=== PATIENT | female | born 1940 | race Caucasian/White ===

== ENCOUNTER 2016-11-20 21:48 | Inpatient (IN) | payer MEDICARE, OTHER ==
[~2016-11-20] VITALS: Ht 160 cm; Wt 63.6 kg
[~2016-11-20 21:48] MED LIST: LEVO500 PO; LISI20TA PO; METF1000 PO; PERCT PO
[2016-11-20] MEDS ORDERED: LOSA25TA21 PO (21:56)
[2016-11-20 22:01] LABS: GLUCOSE,POINT OF CARE 289 MG/DL (70-110)
[2016-11-20 23:47] LABS: BASOPHILS # (AUTO) 0.06 K/uL (0.00-0.20); BASOPHILS % (AUTO) 0.4 % (0.0-2.0); EOSINOPHILS # (AUTO) 0.03 K/uL (0.00-0.70); EOSINOPHILS % (AUTO) 0.21 % (1.0-6.0); HEMATOCRIT 33.4 % (36-46); HEMOGLOBIN 11.1 g/dL (12.0-16.0); LYMPHOCYTES # (AUTO) 2.5 K/uL (1.0-4.8); MEAN CORPUSCULAR HEMOGLOBIN 28.1 pg (26.0-34.0); MEAN CORPUSCULAR HGB CONC 33.3 G/dL (31.0-37.0); MEAN CORPUSCULAR VOLUME 84 fL (80-100); MONOCYTES # (AUTO) 0.9 K/uL (0.1-1.0); MONOCYTES % (AUTO) 5.9 % (2.0-9.0); NEUTROPHILS # (AUTO) 12.3 K/uL (1.8-7.7); NEUTROPHILS % (AUTO) 77.5 % (40.0-70.0); PLATELET COUNT (AUTO) 269 K/uL (150-450); RED BLOOD CELL COUNT(AUTO) 3.96 MIL/uL (4.00-5.20); RED CELL DISTRIBUTION WIDTH 14.2 % (11.5-14.5); WHITE BLOOD COUNT (AUTO) 15.9 K/uL (4.5-11.0)
[2016-11-21] VITALS (7 sets, daily range): BP systolic 98–119; BP diastolic 49–60
[2016-11-21] LABS: ANION GAP 9 mmol/L (8-16); CALCIUM, TOTAL 8.5 mg/dL (8.8-10.5); CARBON DIOXIDE 23 mmol/L (22-29); CHLORIDE 99 mmol/L (98-107); CREATININE 3.65 mg/dL (0.60-1.30); GLOMERULAR FILTR. RATE CALC 12 mL/min (>60); POTASSIUM 5.9 mmol/L (3.5-5.1); SODIUM SERUM 131 mmol/L (136-145); UREA NITROGEN, BLOOD 54 mg/dL (7-18)
[2016-11-21 00:06] LABS: ALANINE AMINOTRANSFERASE 13 U/L (12-78); ALBUMIN 2.9 g/dL (3.4-5.0); ASPARTATE AMINOTRANSFERASE 13 U/L (15-37); BILIRUBIN,TOTAL 0.3 mg/dL (0.1-1.0); CREATINE KINASE, TOTAL 22 U/L (26-192); TOTAL PROTEIN, SERUM 7.3 g/dL (6.4-8.2)
[2016-11-21] MEDS ORDERED: SODIUM CHLORIDE 0.9% 1,000 ML IV ONE (00:30)
[2016-11-21] MEDS ORDERED: CefTRIAXone 1 GM/DEXTROSE 50 ML IV ONE (00:30)
[2016-11-21 00:34] LABS: ADD UA MICROSCOPIC YES; APPEARANCE,URINE CLOUDY (CLEAR); GLUCOSE, URINE (UA) 100 mg/dL (NEGATIVE); KETONES,URINE NEGATIVE (NEGATIVE); LEUKOCYTE ESTERASE ,URINE MODERATE (NEGATIVE); OCCULT BLOOD,URINE MODERATE (NEGATIVE); PROTEIN,URINE POS 1+ (NEGATIVE)
[2016-11-21 00:51] LABS: SQUAMOUS EPITHELIAL CELL,UR Few /LPF (None Seen)
[2016-11-21] MEDS ORDERED: OxyCODONE HCL/ACETAMINOPHEN 5-325 MG TABLET PO PRN ×2 (01:15)
[2016-11-21] MEDS ORDERED: 0.9% SODIUM CHLORIDE 10 ML SYRINGE IVP PRN ×2 (01:15)
[2016-11-21] MEDS ORDERED: ACETAMINOPHEN 325 MG TABLET PO PRN ×2 (01:15)
[2016-11-21] MEDS ORDERED: DEXTROSE 50%-WATER 25 GM/50 ML SYRINGE IVP ONE (01:15)
[2016-11-21] MEDS ORDERED: SODIUM POLYSTYRENE SULFONATE 15 GM/60 ML SUSPENSION BOTTLE PO ONE (01:15)
[2016-11-21] MEDS ORDERED: INSULIN REGULAR, HUMAN 100 UNITS/ML IVP ONE (01:15)
[2016-11-21] MEDS ORDERED: ALBUTEROL SULFATE 2.5 MG/0.5 ML NEB SOLUTION NEB ONE (01:15)
[2016-11-21] MEDS ORDERED: ONDANSETRON HCL 4 MG/2 ML VIAL IVP PRN ×2 (01:15)
[2016-11-21] MEDS: DOCUSATE SODIUM 100 MG CAPSULE PO SCH ×3 (02:16→21:41)
[2016-11-21] MEDS ORDERED: PNEUMOCOCCAL VACCINE POLYVALENT 0.5 ML VIAL [PPSV23] IM ONE (03:30)
[2016-11-21] MEDS: SODIUM CHLORIDE 0.9% 1,000 ML IV SCH ×3 (03:53→21:15)
[2016-11-21] MEDS: PANTOPRAZOLE SODIUM 40 MG/VIAL IVP SCH (09:47)
[2016-11-21] MEDS ORDERED: DEXTROSE 50%-WATER 25 GM/50 ML SYRINGE IVP PRN (11:00)
[2016-11-21] MEDS: INSULIN ASPART 100 UNITS/ML SQ PRN (12:10)
[2016-11-21 13:04] LABS: CALCIUM, TOTAL 7.9 mg/dL (8.8-10.5); CREATININE 2.58 mg/dL (0.60-1.30); POTASSIUM 4.5 mmol/L (3.5-5.1)
[2016-11-21 13:08] LABS: MAGNESIUM 1.5 mg/dL (1.80-2.40); PHOSPHORUS 2.5 mg/dL (2.5-4.9)
[2016-11-21] MEDS ORDERED: MAGNESIUM SULFATE 1 GM in DEXTROSE 5%-WATER 50 ML IV ONE (14:45)
[2016-11-21] MEDS: OXYGEN THERAPY IH SCH (20:00)
[2016-11-22] MEDS: CefTRIAXone 1 GM/DEXTROSE 50 ML IV SCH (01:06)
[2016-11-22 04:58] VITALS: BP 117/48
[2016-11-22] MEDS: SODIUM CHLORIDE 0.9% 1,000 ML IV SCH (06:14)
[2016-11-22] MEDS: INSULIN ASPART 100 UNITS/ML SQ PRN ×4 (06:15→20:58)
[2016-11-22 06:40] LABS: BASOPHILS % (AUTO) 0.3 % (0.0-2.0); EOSINOPHILS % (AUTO) 1.6 % (1.0-6.0); HEMATOCRIT 32.7 % (36-46); HEMOGLOBIN 11.1 g/dL (12.0-16.0); LYMPHOCYTES # (AUTO) 2.5 K/uL (1.0-4.8); LYMPHOCYTES % (AUTO) 28.6 % (22.0-44.0); MEAN CORPUSCULAR HEMOGLOBIN 28.6 pg (26.0-34.0); MEAN CORPUSCULAR HGB CONC 33.9 G/dL (31.0-37.0); MEAN CORPUSCULAR VOLUME 84 fL (80-100); MONOCYTES # (AUTO) 0.7 K/uL (0.1-1.0); MONOCYTES % (AUTO) 7.6 % (2.0-9.0); NEUTROPHILS # (AUTO) 5.4 K/uL (1.8-7.7); NEUTROPHILS % (AUTO) 61.9 % (40.0-70.0); PLATELET COUNT (AUTO) 297 K/uL (150-450); RED BLOOD CELL COUNT(AUTO) 3.88 MIL/uL (4.00-5.20); RED CELL DISTRIBUTION WIDTH 14.6 % (11.5-14.5); WHITE BLOOD COUNT (AUTO) 8.7 K/uL (4.5-11.0)
[2016-11-22 07:00] LABS: CALCIUM, TOTAL 8.5 mg/dL (8.8-10.5); CREATININE 1.78 mg/dL (0.60-1.30); MAGNESIUM 1.9 mg/dL (1.80-2.40); PHOSPHORUS 3.4 mg/dL (2.5-4.9); POTASSIUM 3.8 mmol/L (3.5-5.1)
[2016-11-22 07:52] VITALS: BP 133/65
[2016-11-22] MEDS: OXYGEN THERAPY IH SCH ×2 (08:31→20:00)
[2016-11-22] MEDS: PANTOPRAZOLE SODIUM 40 MG/VIAL IVP SCH (08:32)
[2016-11-22] MEDS: DOCUSATE SODIUM 100 MG CAPSULE PO SCH ×2 (08:32→20:55)
[2016-11-22 12:12] VITALS: BP 123/58
[2016-11-22] MEDS ORDERED: OMEP20 PO (14:14)
[2016-11-22] MEDS ORDERED: LINA5TAB PO (14:14)
[2016-11-22] MEDS ORDERED: ALEN70TA48 PO (14:14)
[2016-11-22] MEDS ORDERED: GABA-531 PO (14:14)
[2016-11-22] MEDS ORDERED: HYDR25TA PO (14:14)
[2016-11-22] MEDS ORDERED: GLIP10 PO (14:14)
[2016-11-22 15:37] LABS: GLUCOSE,POINT OF CARE 177 MG/DL (70-110)
[2016-11-22 15:37] LABS: GLUCOSE,POINT OF CARE 131 MG/DL (70-110)
[2016-11-22 15:47] LABS: GLUCOSE COMMENT 1 Received Meds; GLUCOSE,POINT OF CARE 185 MG/DL (70-110)
[2016-11-22 15:58] VITALS: BP 115/61
[2016-11-22 19:47] LABS: GLUCOSE COMMENT 1 Received Meds; GLUCOSE,POINT OF CARE 147 MG/DL (70-110)
[2016-11-22 19:59] VITALS: BP 128/59
[2016-11-22 20:32] LABS: GLUCOSE COMMENT 1 Received Meds; GLUCOSE,POINT OF CARE 173 MG/DL (70-110)
[2016-11-23 00:01] VITALS: BP 130/63
[2016-11-23] MEDS: CefTRIAXone 1 GM/DEXTROSE 50 ML IV SCH (01:52)
[2016-11-23 04:12] VITALS: BP 133/67
[2016-11-23] MEDS: INSULIN ASPART 100 UNITS/ML SQ PRN ×2 (06:43→12:21)
[2016-11-23 06:50] LABS: CALCIUM, TOTAL 8.4 mg/dL (8.8-10.5); CREATININE 1.29 mg/dL (0.60-1.30); MAGNESIUM 1.6 mg/dL (1.80-2.40); PHOSPHORUS 3.2 mg/dL (2.5-4.9); POTASSIUM 3.6 mmol/L (3.5-5.1)
[2016-11-23] MEDS: OXYGEN THERAPY IH SCH (08:00)
[2016-11-23 08:13] VITALS: BP 131/69
[2016-11-23] MEDS: DOCUSATE SODIUM 100 MG CAPSULE PO SCH (08:33)
[2016-11-23] MEDS: PANTOPRAZOLE SODIUM 40 MG/VIAL IVP SCH (08:34)
[2016-11-23] MEDS ORDERED: MAGNESIUM SULFATE 2 GM in DEXTROSE 5%-WATER 50 ML IV ONE (08:45)
[2016-11-23 10:57] VITALS: BP 126/63
[2016-11-24 06:03] LABS: GLUCOSE COMMENT 1 Received Meds; GLUCOSE,POINT OF CARE 203 MG/DL (70-110)
[2016-11-24 06:08] LABS: GLUCOSE COMMENT 1 Received Meds; GLUCOSE,POINT OF CARE 227 MG/DL (70-110)
[2016-11-24 07:58] LABS: GLUCOSE,POINT OF CARE 192 MG/DL (70-110)
[2016-11-24 07:58] LABS: GLUCOSE COMMENT 1 Received Meds; GLUCOSE,POINT OF CARE 166 MG/DL (70-110)
== END 2016-11-23 13:25 | disposition home or self-care (01) | DRG 682 ==
LOC: EMS 21:50 → 5N 11-21 01:16
PROVIDERS: ADMIT Internal Medicine; ATTEND Internal Medicine
PROC: 3E0234Z Introduction of Serum, Toxoid and Vaccine into Muscle, Percutaneous Approach (ICD-10-PCS; principal; 2016-11-21)
DX: N17.9 Acute kidney failure, unspecified (principal); E43 Unspecified severe protein-calorie malnutrition; E11.9 Type 2 diabetes mellitus without complications; N39.0 Urinary tract infection, site not specified; E87.5 Hyperkalemia; E86.0 Dehydration; I10 Essential (primary) hypertension; B96.20 Unspecified Escherichia coli [E. coli] as the cause of diseases classified elsewhere; E83.42 Hypomagnesemia; Z23 Encounter for immunization; E78.00 Pure hypercholesterolemia, unspecified; M19.90 Unspecified osteoarthritis, unspecified site; M53.3 Sacrococcygeal disorders, not elsewhere classified; Z96.649 Presence of unspecified artificial hip joint; R29.6 Repeated falls; M54.5 Low back pain; Z90.710 Acquired absence of both cervix and uterus; Z79.899 Other long term (current) drug therapy; Z68.24 Body mass index [BMI] 24.0-24.9, adult; T50.905A Adverse effect of unspecified drugs, medicaments and biological substances, initial encounter
CPT/HCPCS: 72220; 76770; 82962; 83735; 84100; 87040; 87086; 90471; 93005; 96365; 96375; 99291; C9113; J0696; J1815; J3475; J7030; J7060

== ENCOUNTER 2016-12-30 19:10 | Emergency (ER) | payer MEDICARE, OTHER ==
[~2016-12-30] VITALS: Ht 152.4 cm; Wt 67.7 kg
[~2016-12-30 19:10] MED LIST changes: +ALEN70TA48 PO; +ALEN70TA69 PO; +GLIP10TA9 PO; +HYDR12.530 PO; +HYDR25TA PO; -LEVO500 PO; +LINA5TAB PO; -LISI20TA PO; +LOSA50TA37 PO; +METF10002 PO; +OMEP20 PO; +OMEP20CA10 PO; -PERCT PO; +SIMV20TA6 PO; +[UNRECOGNIZED DRUG - REMARK] PO
[2016-12-30] MEDS ORDERED: IBUP-2070 PO (19:16)
[2016-12-30 20:24] LABS: BASOPHILS % (AUTO) 0.2 % (0.0-2.0); EOSINOPHILS % (AUTO) 1.1 % (1.0-6.0); HEMATOCRIT 35.3 % (36-46); HEMOGLOBIN 11.7 g/dL (12.0-16.0); LYMPHOCYTES # (AUTO) 2.2 K/uL (1.0-4.8); MEAN CORPUSCULAR HEMOGLOBIN 27.5 pg (26.0-34.0); MEAN CORPUSCULAR HGB CONC 33.2 G/dL (31.0-37.0); MEAN CORPUSCULAR VOLUME 83 fL (80-100); MONOCYTES # (AUTO) 0.6 K/uL (0.1-1.0); MONOCYTES % (AUTO) 4.7 % (2.0-9.0); NEUTROPHILS # (AUTO) 9.9 K/uL (1.8-7.7); PLATELET COUNT (AUTO) 365 K/uL (150-450); RED BLOOD CELL COUNT(AUTO) 4.26 MIL/uL (4.00-5.20); RED CELL DISTRIBUTION WIDTH 14.7 % (11.5-14.5)
[2016-12-30 20:33] LABS: CALCIUM, TOTAL 9.1 mg/dL (8.8-10.5); CREATININE 1.02 mg/dL (0.60-1.30)
[2016-12-30 20:39] LABS: ALBUMIN 3.3 g/dL (3.4-5.0); BILIRUBIN,TOTAL 0.4 mg/dL (0.1-1.0); TOTAL PROTEIN, SERUM 7.7 g/dL (6.4-8.2)
[2016-12-30 21:00] LABS: APPEARANCE,URINE CLEAR (CLEAR); BILIRUBIN,URINE NEGATIVE (NEGATIVE); GLUCOSE, URINE (UA) 100 mg/dL (NEGATIVE); KETONES,URINE NEGATIVE (NEGATIVE); LEUKOCYTE ESTERASE ,URINE NEGATIVE (NEGATIVE); NITRATE,URINE NEGATIVE (NEGATIVE); OCCULT BLOOD,URINE NEGATIVE (NEGATIVE); PROTEIN,URINE NEGATIVE (NEGATIVE); UROBILINOGEN,URINE 0.2 mg/dL (<=1.0)
[2016-12-30 21:14] VITALS: BP 125/74
[2016-12-30 21:14] LABS: SQUAMOUS EPITHELIAL CELL,UR Few /LPF (None Seen)
[2016-12-30 21:15] LABS: BACTERIA,URINE Moderate /HPF (None Seen)
[2016-12-30 21:16] LABS: RBC,URINE None Seen /HPF (0-2)
[2016-12-30] MEDS ORDERED: CYCLOBENZAPRINE HCL 10 MG TABLET PO ONE (21:30)
[2016-12-31 11:22] LABS: GLUCOSE,POINT OF CARE 312 MG/DL (70-110)
== END 2016-12-30 21:50 | disposition home or self-care (01) ==
LOC: EDUNIT# 19:14 → EMS 19:16
DX: M43.6 Torticollis (principal)
CPT/HCPCS: 82948; 82962; 87086; 93005; 99285

== ENCOUNTER 2017-12-20 12:46 | Emergency (ER) | payer MEDICARE, OTHER ==
[~2017-12-20] VITALS: Ht 152.4 cm; Wt 62.3 kg
[~2017-12-20 12:46] MED LIST changes: +IBUP-2070 PO; +LOSA50TA25 PO; -LOSA50TA37 PO; +METF-446 PO; -METF10002 PO
[2017-12-20 12:59] LABS: GLUCOSE,POINT OF CARE 316 MG/DL (70-110)
[2017-12-20] MEDS ORDERED: ACETAMINOPHEN 325 MG TABLET PO ONE (14:00)
[2017-12-20 15:07] VITALS: BP 141/79
== END 2017-12-20 15:11 | disposition home or self-care (01) ==
LOC: EMS 12:47
DX: S82.832A Other fracture of upper and lower end of left fibula, initial encounter for closed fracture (principal); E11.65 Type 2 diabetes mellitus with hyperglycemia; I10 Essential (primary) hypertension; G89.29 Other chronic pain; Z79.84 Long term (current) use of oral hypoglycemic drugs; W22.01XA Walked into wall, initial encounter; Y93.89 Activity, other specified; Y92.89 Other specified places as the place of occurrence of the external cause; Y99.8 Other external cause status
CPT/HCPCS: 29515

== ENCOUNTER → 2018-01-13 | Outpatient (CLI) | payer MEDICARE, OTHER ==
[~2018-01-13] MED LIST changes: -[UNRECOGNIZED DRUG - REMARK] PO
[2018-01-13 11:59] LABS: APPEARANCE,URINE CLOUDY (CLEAR); GLUCOSE, URINE (UA) NEGATIVE (NEGATIVE); KETONES,URINE TRACE mg/dL (NEGATIVE); LEUKOCYTE ESTERASE ,URINE MODERATE (NEGATIVE); NITRATE,URINE POSITIVE (NEGATIVE); OCCULT BLOOD,URINE TRACE (NEGATIVE); PROTEIN,URINE TRACE (NEGATIVE)
[2018-01-13 12:03] LABS: BILIRUBIN,URINE PRELIM. POSITIVE (NEGATIVE)
[2018-01-13 12:04] LABS: BACTERIA,URINE Many /HPF (None Seen); RBC,URINE 0-2 /HPF (0-2); SQUAMOUS EPITHELIAL CELL,UR Moderate /LPF (None Seen)
[2018-01-13 12:08] LABS: ALBUMIN 3.8 g/dL (3.4-5.0); ANION GAP 9 mmol/L (8-16); CALCIUM, TOTAL 9.2 mg/dL (8.8-10.5); CARBON DIOXIDE 29 mmol/L (22-29); CHLORIDE 101 mmol/L (98-107); CHOL/HDL RATIO 2.3 (3.9-5.7); CHOLESTEROL 82 mg/dL (131-200); CREATININE 0.89 mg/dL (0.60-1.30); GLUCOSE,RANDOM 126 mg/dL (70-110); HDL CHOLESTEROL 35 mg/dL (40-60); LDL CHOL (CALC.) 28 mg/dL (0-130); PHOSPHORUS 3.5 mg/dL (2.5-4.9); POTASSIUM 4.6 mmol/L (3.5-5.1); SODIUM SERUM 139 mmol/L (136-145); TRIGLYCERIDES 96 mg/dL (15-150); UREA NITROGEN, BLOOD 15 mg/dL (7-18)
[2018-01-13 12:09] LABS: GLOMERULAR FILTR. RATE CALC > 60 mL/min (>60)
[2018-01-13 12:12] LABS: BASOPHILS % (AUTO) 0.7 % (0.0-2.0); EOSINOPHILS % (AUTO) 1.7 % (1.0-6.0); HEMATOCRIT 42.2 % (36-46); HEMOGLOBIN 14.2 g/dL (12.0-16.0); LYMPHOCYTES # (AUTO) 2.5 K/uL (1.0-4.8); LYMPHOCYTES % (AUTO) 31.9 % (22.0-44.0); MEAN CORPUSCULAR HEMOGLOBIN 28.5 pg (26.0-34.0); MEAN CORPUSCULAR HGB CONC 33.7 G/dL (31.0-37.0); MEAN CORPUSCULAR VOLUME 85 fL (80-100); MONOCYTES # (AUTO) 0.5 K/uL (0.1-1.0); NEUTROPHILS # (AUTO) 4.6 K/uL (1.8-7.7); NEUTROPHILS % (AUTO) 59.7 % (40.0-70.0); PLATELET COUNT (AUTO) 332 K/uL (150-450); RED CELL DISTRIBUTION WIDTH 14.6 % (11.5-14.5)
[2018-01-13 12:41] LABS: HEMOGLOBIN A1C 7.5 % (4.5-6.2)
== END | disposition home or self-care (01) ==
LOC: LABPV 10:51
PROVIDERS: ATTEND Internal Medicine Nephrology
DX: E55.9 Vitamin D deficiency, unspecified (principal); E78.5 Hyperlipidemia, unspecified; E11.9 Type 2 diabetes mellitus without complications; Z79.899 Other long term (current) drug therapy
CPT/HCPCS: 82043; 82306; 82570; 83036; 83735; 83970; 87086

== ENCOUNTER → 2018-01-25 | Outpatient (CLI) | payer MEDICARE, OTHER | END | disposition home or self-care (01) | LOC: RADPV 09:13 | PROVIDERS: ATTEND Orthopaedic Surgery | DX: S82.842A Displaced bimalleolar fracture of left lower leg, initial encounter for closed fracture (principal); X58.XXXA Exposure to other specified factors, initial encounter; Y93.89 Activity, other specified; Y92.89 Other specified places as the place of occurrence of the external cause; Y99.8 Other external cause status ==

== ENCOUNTER → 2018-02-15 | Outpatient (CLI) | payer MEDICARE, OTHER ==
[~2018-02-15] MED LIST changes: -LOSA50TA25 PO; +LOSA50TA64 PO
== END | disposition home or self-care (01) ==
LOC: RADPV 09:30
PROVIDERS: ATTEND Orthopaedic Surgery
DX: S82.62XD Displaced fracture of lateral malleolus of left fibula, subsequent encounter for closed fracture with routine healing (principal); S82.842D Displaced bimalleolar fracture of left lower leg, subsequent encounter for closed fracture with routine healing; X58.XXXD Exposure to other specified factors, subsequent encounter

== ENCOUNTER → 2018-05-03 | Outpatient (CLI) | payer MEDICARE, OTHER ==
[~2018-05-03] MED LIST changes: +ALEN70TA10 PO; +ALEN70TA19 PO; -ALEN70TA48 PO; -ALEN70TA69 PO
== END | disposition home or self-care (01) ==
LOC: RADPV 12:18
PROVIDERS: ATTEND Orthopaedic Surgery
DX: S82.832A Other fracture of upper and lower end of left fibula, initial encounter for closed fracture (principal); X58.XXXA Exposure to other specified factors, initial encounter; Y93.89 Activity, other specified; Y92.89 Other specified places as the place of occurrence of the external cause; Y99.8 Other external cause status

== ENCOUNTER → 2018-10-27 | Outpatient (CLI) | payer MEDICARE, OTHER ==
[~2018-10-27] MED LIST changes: +OMEP-50 PO; -OMEP20CA10 PO
[2018-10-27 12:33] LABS: BILIRUBIN,URINE NEGATIVE (NEGATIVE); GLUCOSE, URINE (UA) 250 mg/dL (NEGATIVE); KETONES,URINE NEGATIVE (NEGATIVE); LEUKOCYTE ESTERASE ,URINE SMALL (NEGATIVE); NITRATE,URINE POSITIVE (NEGATIVE); OCCULT BLOOD,URINE SMALL (NEGATIVE); PROTEIN,URINE NEGATIVE (NEGATIVE); UROBILINOGEN,URINE 0.2 mg/dL (<=1.0)
[2018-10-27 12:38] LABS: APPEARANCE,URINE SLIGHTLY CLOUDY (CLEAR)
[2018-10-27 12:45] LABS: BACTERIA,URINE Many /HPF (None Seen); SQUAMOUS EPITHELIAL CELL,UR Moderate /LPF (None Seen)
== END | disposition home or self-care (01) ==
LOC: LABPV 11:38
PROVIDERS: ATTEND Internal Medicine Nephrology
DX: I12.9 Hypertensive chronic kidney disease with stage 1 through stage 4 chronic kidney disease, or unspecified chronic kidney disease (principal); N18.9 Chronic kidney disease, unspecified; M54.5 Low back pain; R73.09 Other abnormal glucose; R82.998 Other abnormal findings in urine
CPT/HCPCS: 83036; 87086

== ENCOUNTER → 2019-11-28 | Outpatient (CLI) | payer MEDICARE ==
[~2019-11-28] MED LIST changes: -ALEN70TA10 PO; -ALEN70TA19 PO; +ALEN70TA65 PO; +GLIP10 PO; -GLIP10TA9 PO; +HYDR-1475 PO; -HYDR12.530 PO; -HYDR25TA PO; -IBUP-2070 PO; +LEVO-72 PO; +LOSA50TA37 PO; -LOSA50TA64 PO; -METF-446 PO; +METF-960 PO; -METF1000 PO; -OMEP-50 PO; +SIMV-260 PO; -SIMV20TA6 PO
== END | disposition home or self-care (01) ==
LOC: RADMN 09:37
PROVIDERS: ATTEND Family Medicine
DX: M51.16 Intervertebral disc disorders with radiculopathy, lumbar region (principal); M40.46 Postural lordosis, lumbar region; M43.16 Spondylolisthesis, lumbar region; M48.061 Spinal stenosis, lumbar region without neurogenic claudication
CPT/HCPCS: 72148

== ENCOUNTER 2020-04-12 14:00 | Emergency (ER) | payer MEDICARE, OTHER ==
[~2020-04-12] VITALS: Ht 149.9 cm; Wt 45.5 kg
[~2020-04-12 14:00] MED LIST changes: -HYDR-1475 PO; +HYDR25TA2 PO
[2020-04-12 14:03] VITALS: BP 127/64
[2020-04-12] MEDS ORDERED: HYDROCODONE/ACETAMINOPHEN 5-325 MG TABLET PO ONE (14:30)
[2020-04-12] MEDS ORDERED: CYCLOBENZAPRINE HCL 10 MG TABLET PO ONE (14:30)
[2020-04-12] MEDS ORDERED: IBUPROFEN 400 MG TABLET PO ONE (14:30)
== END 2020-04-12 15:56 | disposition home or self-care (01) ==
LOC: EMS 14:11
DX: M43.6 Torticollis (principal); E11.9 Type 2 diabetes mellitus without complications; I10 Essential (primary) hypertension
CPT/HCPCS: 99284

== ENCOUNTER 2020-11-30 10:40 | Inpatient (IN) | payer MEDICARE, OTHER ==
[~2020-11-30] VITALS: Ht 152.4 cm; Wt 59.4 kg
[~2020-11-30 10:40] MED LIST changes: -LEVO-72 PO
[2020-11-30] MEDS ORDERED: ACETAMINOPHEN 500 MG TABLET PO ONE (12:00)
[2020-11-30] MEDS ORDERED: ACETAMINOPHEN 325 MG TABLET PO PRN (14:30)
[2020-11-30] MEDS ORDERED: 0.9% SODIUM CHLORIDE 10 ML SYRINGE IVP PRN (14:30)
[2020-11-30] MEDS ORDERED: ONDANSETRON HCL 4 MG/2 ML VIAL IVP PRN ×2 (14:30→18:30)
[2020-11-30 14:38] LABS: COVID AG,FIA SOURCE NASOPHARYNGEAL
[2020-11-30 14:40] LABS: BASOPHILS % (AUTO) 0.1 % (0.0-2.0); EOSINOPHILS % (AUTO) 0 % (1.0-6.0); HEMATOCRIT 36.5 % (36-46); HEMOGLOBIN 11.5 g/dL (12.0-16.0); LYMPHOCYTES # (AUTO) 2.3 K/uL (1.0-4.8); MEAN CORPUSCULAR HEMOGLOBIN 24.8 pg (26.0-34.0); MEAN CORPUSCULAR HGB CONC 31.5 G/dL (31.0-37.0); MEAN CORPUSCULAR VOLUME 79 fL (80-100); MONOCYTES # (AUTO) 0.6 K/uL (0.1-1.0); MONOCYTES % (AUTO) 3.5 % (2.0-9.0); NEUTROPHILS # (AUTO) 13.8 K/uL (1.8-7.7); NEUTROPHILS % (AUTO) 82.4 % (40.0-70.0); PLATELET COUNT (AUTO) 355 K/uL (150-450); RED BLOOD CELL COUNT(AUTO) 4.63 MIL/uL (4.00-5.20); RED CELL DISTRIBUTION WIDTH 16.6 % (11.5-14.5)
[2020-11-30 14:42] LABS: ANION GAP 7 mmol/L (8-16); CALCIUM, TOTAL 8.6 mg/dL (8.8-10.5); CARBON DIOXIDE 28 mmol/L (22-29); CHLORIDE 100 mmol/L (98-107); CREATININE 0.75 mg/dL (0.60-1.30); GLUCOSE,RANDOM 348 mg/dL (70-110); POTASSIUM 4.6 mmol/L (3.5-5.1); SODIUM SERUM 135 mmol/L (136-145); UREA NITROGEN, BLOOD 26 mg/dL (7-18)
[2020-11-30 14:43] LABS: GLOMERULAR FILTR. RATE CALC > 60 mL/min (>60)
[2020-11-30 14:48] LABS: PROTHROMBIN TIME 10.5 SEC (9.4-11.6)
[2020-11-30 14:49] LABS: ALANINE AMINOTRANSFERASE 61 U/L (12-78); ALBUMIN 3.2 g/dL (3.4-5.0); ALKALINE PHOSPHATASE 86 U/L (46-116); ASPARTATE AMINOTRANSFERASE 21 U/L (15-37); BILIRUBIN,TOTAL 0.5 mg/dL (0.1-1.0); TOTAL PROTEIN, SERUM 6.7 g/dL (6.4-8.2)
[2020-11-30] MEDS ORDERED: MORPHINE SULFATE 2 MG/ML SYRINGE IVP PRN (18:30)
[2020-11-30] MEDS ORDERED: ALBUTEROL SULFATE 2.5 MG/0.5 ML NEB SOLUTION NEB PRN (18:30)
[2020-11-30] MEDS ORDERED: IPRATROPIUM BROMIDE 0.5 MG/2.5 ML NEB SOLUTION NEB PRN (18:30)
[2020-11-30] MEDS ORDERED: BISACODYL 10 MG RECTAL RECTAL SUPPOSITORY PR PRN (18:30)
[2020-11-30] MEDS ORDERED: MAGNESIUM HYDROXIDE SUSPENSION 30 ML UDCUP PO PRN (18:30)
[2020-11-30 20:15] VITALS: BP 131/57
[2020-11-30] MEDS: DOCUSATE SODIUM 100 MG CAPSULE PO SCH (20:41)
[2020-11-30] MEDS: ZOLPIDEM TARTRATE 5 MG TABLET PO PRN (20:41)
[2020-11-30] MEDS: HYDROCODONE/ACETAMINOPHEN 5-325 MG TABLET PO PRN (20:43)
[2020-11-30] MEDS ORDERED: SODIUM CHLORIDE 0.9% 1,000 ML ONE (21:02)
[2020-11-30] MEDS ORDERED: SODIUM CHLORIDE 0.9% 1,000 ML IV SCH (21:15)
[2020-11-30] MEDS: HEPARIN SODIUM,PORCINE 5,000 UNITS/ML VIAL SQ SCH (23:42)
[2020-11-30] MEDS ORDERED: INFLUENZA VIRUS VACCINE QVS 2021-22 (6MO+)/PF 60 MCG/0.5 ML SYRINGE IM. ONE (23:45)
[2020-12-01] MEDS: HYDROCODONE/ACETAMINOPHEN 5-325 MG TABLET PO PRN ×3 (01:56→23:59)
[2020-12-01 04:05] VITALS: BP 185/102
[2020-12-01] MEDS: LinaGLIPtin 5 MG TABLET PO SCH (04:19)
[2020-12-01] MEDS: GlipiZIDE 10 MG TABLET PO SCH (04:20)
[2020-12-01] MEDS ORDERED: LOSARTAN POTASSIUM 50 MG TABLET PO ONE (04:30)
[2020-12-01 05:30] VITALS: BP 153/70
[2020-12-01] MEDS ORDERED: BUPIVACAINE HCL/PF 0.25% 30 ML VIAL ONE (06:51)
[2020-12-01] MEDS ORDERED: RINGERS SOLUTION,LACTATED 0 ML IV ONE (06:51)
[2020-12-01] MEDS ORDERED: VANCOMYCIN HCL 1 GM/VIAL ONE (06:51)
[2020-12-01] MEDS ORDERED: SODIUM CL IRRIG SOLN BAG 0 ML IRRIG ONE (06:52)
[2020-12-01] MEDS ORDERED: SODIUM CHLORIDE 0.9% 1,000 ML ONE (06:55)
[2020-12-01] MEDS ORDERED: BUPIVACAINE 0.25%/EPI 1:200,000/PF 10 ML VIAL ONE (06:56)
[2020-12-01] MEDS ORDERED: BUPIVACAINE LIPOSOME/PF 1.3%-13.3MG/ML SUSPENSION 20 ML VIAL INJ ONE (07:00)
[2020-12-01 07:24] LABS: GLUCOMETER DEV NAME(LOC) 6N.1; GLUCOSE,POINT OF CARE 239 MG/DL (70-110)
[2020-12-01] MEDS: HEPARIN SODIUM,PORCINE 5,000 UNITS/ML VIAL SQ SCH ×3 (08:00→23:59)
[2020-12-01] MEDS ORDERED: FentaNYL CITRATE PF 100 MCG/2 ML VIAL IVP PRN (08:45)
[2020-12-01] MEDS ORDERED: HYDROmorphone 2 MG/ML VIAL IVP PRN (08:45)
[2020-12-01 09:22] VITALS: BP 139/64
[2020-12-01] MEDS: DOCUSATE SODIUM 100 MG CAPSULE PO SCH ×2 (09:53→20:04)
[2020-12-01] MEDS: SIMVASTATIN 20 MG TABLET PO SCH (09:53)
[2020-12-01] MEDS: OMEPRAZOLE 20 MG CAPSULE PO SCH (09:53)
[2020-12-01] MEDS: LOSARTAN POTASSIUM 50 MG TABLET PO SCH (09:53)
[2020-12-01] MEDS: HYDROCHLOROTHIAZIDE 25 MG TABLET PO SCH (09:53)
[2020-12-01 11:35] LABS: GLUCOMETER DEV NAME(LOC) 6N.1; GLUCOSE,POINT OF CARE 272 MG/DL (70-110)
[2020-12-01] MEDS: INSULIN LISPRO 100 UNITS/ML SQ PRN ×3 (11:38→21:53)
[2020-12-01] MEDS ORDERED: DEXTROSE 50%-WATER 25 GM/50 ML SYRINGE IVP PRN (11:45)
[2020-12-01 12:54] LABS: ALANINE AMINOTRANSFERASE 60 U/L (12-78); ALBUMIN 3.2 g/dL (3.4-5.0); ALKALINE PHOSPHATASE 92 U/L (46-116); ANION GAP 10 mmol/L (8-16); ASPARTATE AMINOTRANSFERASE 32 U/L (15-37); BILIRUBIN,TOTAL 0.5 mg/dL (0.1-1.0); CALCIUM, TOTAL 7.7 mg/dL (8.8-10.5); CARBON DIOXIDE 25 mmol/L (22-29); CHLORIDE 99 mmol/L (98-107); CREATININE 0.83 mg/dL (0.60-1.30); GLUCOSE,RANDOM 292 mg/dL (70-110); SODIUM SERUM 134 mmol/L (136-145); TOTAL PROTEIN, SERUM 7.3 g/dL (6.4-8.2); UREA NITROGEN, BLOOD 15 mg/dL (7-18)
[2020-12-01 12:55] LABS: GLOMERULAR FILTR. RATE CALC > 60 mL/min (>60)
[2020-12-01 13:51] LABS: EOSINOPHILS % (AUTO) 0.1 % (1.0-6.0); HEMATOCRIT 40.4 % (36-46); HEMOGLOBIN 12.5 g/dL (12.0-16.0); LYMPHOCYTES # (AUTO) 1.5 K/uL (1.0-4.8); MEAN CORPUSCULAR HEMOGLOBIN 24.8 pg (26.0-34.0); MEAN CORPUSCULAR HGB CONC 30.9 G/dL (31.0-37.0); MEAN CORPUSCULAR VOLUME 80 fL (80-100); MONOCYTES # (AUTO) 0.7 K/uL (0.1-1.0); MONOCYTES % (AUTO) 3.9 % (2.0-9.0); NEUTROPHILS # (AUTO) 14.5 K/uL (1.8-7.7); PLATELET COUNT (AUTO) 346 K/uL (150-450); RED BLOOD CELL COUNT(AUTO) 5.04 MIL/uL (4.00-5.20); RED CELL DISTRIBUTION WIDTH 17.3 % (11.5-14.5)
[2020-12-01 15:58] VITALS: BP 130/66
[2020-12-01 17:36] LABS: GLUCOMETER DEV NAME(LOC) 6S.1; GLUCOSE,POINT OF CARE 300 MG/DL (70-110)
[2020-12-01] MEDS: OXYGEN THERAPY IH SCH (20:00)
[2020-12-01] MEDS: ZOLPIDEM TARTRATE 5 MG TABLET PO PRN (20:04)
[2020-12-01 20:05] VITALS: BP 111/58
[2020-12-02] MEDS ORDERED: LIDOCAINE/PF 2% 5 ML VIAL IM ONE (01:02)
[2020-12-02] MEDS ORDERED: SUCCINYLCHOLINE CHLORIDE 20 MG/ML 10 ML VIAL IVP ONE (01:02)
[2020-12-02] MEDS ORDERED: EPHEDrine SULFATE 50 MG/ML VIAL IM ONE (01:02)
[2020-12-02] MEDS ORDERED: ROCURONIUM BROMIDE 10 MG/ML 5 ML VIAL IVP ONE (01:02)
[2020-12-02] MEDS ORDERED: ONDANSETRON HCL 4 MG/2 ML VIAL IVP ONE (01:02)
[2020-12-02] MEDS ORDERED: 0.9% SODIUM CHLORIDE 10 ML VIAL IVP ONE (01:02)
[2020-12-02] MEDS ORDERED: FentaNYL CITRATE PF 100 MCG/2 ML VIAL IVP ONE (01:02)
[2020-12-02 02:36] LABS: GLUCOMETER DEV NAME(LOC) 6N.1; GLUCOSE,POINT OF CARE 329 MG/DL (70-110)
[2020-12-02] MEDS: HYDROCODONE/ACETAMINOPHEN 5-325 MG TABLET PO PRN ×2 (03:51→08:44)
[2020-12-02 04:47] VITALS: BP 128/65
[2020-12-02] MEDS: GlipiZIDE 10 MG TABLET PO SCH ×2 (06:37→17:54)
[2020-12-02] MEDS: INSULIN LISPRO 100 UNITS/ML SQ PRN ×4 (06:39→21:00)
[2020-12-02 07:10] LABS: GLUCOMETER DEV NAME(LOC) 6S.1; GLUCOSE,POINT OF CARE 319 MG/DL (70-110)
[2020-12-02 07:56] VITALS: BP 107/60
[2020-12-02] MEDS: OXYGEN THERAPY IH SCH ×2 (08:00→20:00)
[2020-12-02] MEDS: DOCUSATE SODIUM 100 MG CAPSULE PO SCH ×2 (08:43→20:27)
[2020-12-02] MEDS: LOSARTAN POTASSIUM 50 MG TABLET PO SCH (08:44)
[2020-12-02] MEDS: SIMVASTATIN 20 MG TABLET PO SCH (08:44)
[2020-12-02] MEDS: OMEPRAZOLE 20 MG CAPSULE PO SCH (08:44)
[2020-12-02] MEDS: LinaGLIPtin 5 MG TABLET PO SCH (08:44)
[2020-12-02] MEDS: HYDROCHLOROTHIAZIDE 25 MG TABLET PO SCH (08:44)
[2020-12-02] MEDS: HEPARIN SODIUM,PORCINE 5,000 UNITS/ML VIAL SQ SCH ×3 (08:45→23:40)
[2020-12-02 11:59] LABS: GLUCOMETER DEV NAME(LOC) 6N.1; GLUCOSE,POINT OF CARE 218 MG/DL (70-110)
[2020-12-02 15:49] VITALS: BP 115/61
[2020-12-02 17:00] LABS: GLUCOMETER DEV NAME(LOC) 6N.1; GLUCOSE,POINT OF CARE 292 MG/DL (70-110)
[2020-12-02 20:15] VITALS: BP 105/59
[2020-12-02 22:35] LABS: GLUCOMETER DEV NAME(LOC) 6N.1; GLUCOSE,POINT OF CARE 249 MG/DL (70-110)
[2020-12-03 03:55] VITALS: BP 117/56
[2020-12-03] MEDS: INSULIN LISPRO 100 UNITS/ML SQ PRN ×4 (06:04→20:44)
[2020-12-03] MEDS: GlipiZIDE 10 MG TABLET PO SCH ×2 (06:04→17:29)
[2020-12-03] MEDS: OXYGEN THERAPY IH SCH (08:00)
[2020-12-03 08:08] VITALS: BP 113/61
[2020-12-03] MEDS: HEPARIN SODIUM,PORCINE 5,000 UNITS/ML VIAL SQ SCH (08:17)
[2020-12-03] MEDS: DOCUSATE SODIUM 100 MG CAPSULE PO SCH ×2 (08:17→20:43)
[2020-12-03] MEDS: ACETAMINOPHEN 325 MG TABLET PO PRN (08:17)
[2020-12-03] MEDS: OMEPRAZOLE 20 MG CAPSULE PO SCH (08:17)
[2020-12-03] MEDS: SIMVASTATIN 20 MG TABLET PO SCH (08:17)
[2020-12-03] MEDS: LinaGLIPtin 5 MG TABLET PO SCH (08:18)
[2020-12-03] MEDS: HYDROCHLOROTHIAZIDE 25 MG TABLET PO SCH (08:18)
[2020-12-03] MEDS: LOSARTAN POTASSIUM 50 MG TABLET PO SCH (08:18)
[2020-12-03 14:11] LABS: BASOPHILS % (AUTO) 0.4 % (0.0-2.0); EOSINOPHILS % (AUTO) 0.3 % (1.0-6.0); HEMATOCRIT 41.9 % (36-46); HEMOGLOBIN 13.4 g/dL (12.0-16.0); LYMPHOCYTES # (AUTO) 2.6 K/uL (1.0-4.8); LYMPHOCYTES % (AUTO) 18.2 % (22.0-44.0); MEAN CORPUSCULAR HEMOGLOBIN 25.5 pg (26.0-34.0); MEAN CORPUSCULAR VOLUME 80 fL (80-100); MONOCYTES # (AUTO) 0.7 K/uL (0.1-1.0); MONOCYTES % (AUTO) 4.9 % (2.0-9.0); NEUTROPHILS # (AUTO) 10.7 K/uL (1.8-7.7); NEUTROPHILS % (AUTO) 76.2 % (40.0-70.0); PLATELET COUNT (AUTO) 328 K/uL (150-450); RED BLOOD CELL COUNT(AUTO) 5.26 MIL/uL (4.00-5.20); RED CELL DISTRIBUTION WIDTH 17.3 % (11.5-14.5)
[2020-12-03 14:18] LABS: CALCIUM, TOTAL 9.2 mg/dL (8.8-10.5); CREATININE 1.06 mg/dL (0.60-1.30); POTASSIUM 3.9 mmol/L (3.5-5.1)
[2020-12-03 14:24] LABS: BILIRUBIN,TOTAL 0.6 mg/dL (0.1-1.0); TOTAL PROTEIN, SERUM 7.4 g/dL (6.4-8.2)
[2020-12-03] MEDS ORDERED: APIXABAN 2.5 MG TABLET PO ONE (14:30)
[2020-12-03 15:32] VITALS: BP 104/52
[2020-12-03 18:49] LABS: GLUCOMETER DEV NAME(LOC) 6S.1; GLUCOSE,POINT OF CARE 335 MG/DL (70-110)
[2020-12-03 18:49] LABS: GLUCOMETER DEV NAME(LOC) 6S.1; GLUCOSE,POINT OF CARE 331 MG/DL (70-110)
[2020-12-03 18:49] LABS: GLUCOMETER DEV NAME(LOC) 6S.1; GLUCOSE,POINT OF CARE 222 MG/DL (70-110)
[2020-12-03 18:50] LABS: GLUCOMETER DEV NAME(LOC) 6S.1; GLUCOSE,POINT OF CARE 327 MG/DL (70-110)
[2020-12-03 20:20] VITALS: BP 98/60
[2020-12-03] MEDS: APIXABAN 2.5 MG TABLET PO SCH (20:43)
[2020-12-03] MEDS: ZOLPIDEM TARTRATE 5 MG TABLET PO PRN (20:48)
[2020-12-03 21:42] LABS: GLUCOMETER DEV NAME(LOC) 6N.1; GLUCOSE,POINT OF CARE 283 MG/DL (70-110)
[2020-12-04 04:53] VITALS: BP 125/57
[2020-12-04 05:18] LABS: GLUCOMETER DEV NAME(LOC) 6S.1; GLUCOSE,POINT OF CARE 207 MG/DL (70-110)
[2020-12-04 06:19] LABS: BASOPHILS % (AUTO) 0.3 % (0.0-2.0); EOSINOPHILS % (AUTO) 0.9 % (1.0-6.0); HEMOGLOBIN 13.1 g/dL (12.0-16.0); LYMPHOCYTES # (AUTO) 3.8 K/uL (1.0-4.8); LYMPHOCYTES % (AUTO) 28.7 % (22.0-44.0); MEAN CORPUSCULAR HEMOGLOBIN 25.4 pg (26.0-34.0); MEAN CORPUSCULAR HGB CONC 31.9 G/dL (31.0-37.0); MEAN CORPUSCULAR VOLUME 80 fL (80-100); MONOCYTES # (AUTO) 0.8 K/uL (0.1-1.0); MONOCYTES % (AUTO) 6.1 % (2.0-9.0); NEUTROPHILS # (AUTO) 8.5 K/uL (1.8-7.7); PLATELET COUNT (AUTO) 339 K/uL (150-450); RED BLOOD CELL COUNT(AUTO) 5.15 MIL/uL (4.00-5.20); RED CELL DISTRIBUTION WIDTH 17.6 % (11.5-14.5)
[2020-12-04] MEDS: GlipiZIDE 10 MG TABLET PO SCH ×2 (06:41→17:47)
[2020-12-04] MEDS: INSULIN LISPRO 100 UNITS/ML SQ PRN ×4 (06:43→21:05)
[2020-12-04 06:47] LABS: ALBUMIN 2.9 g/dL (3.4-5.0); BILIRUBIN,TOTAL 0.7 mg/dL (0.1-1.0); CALCIUM, TOTAL 8.7 mg/dL (8.8-10.5); CREATININE 1.45 mg/dL (0.60-1.30); POTASSIUM 4.3 mmol/L (3.5-5.1); TOTAL PROTEIN, SERUM 7.3 g/dL (6.4-8.2)
[2020-12-04 07:36] VITALS: BP 112/61
[2020-12-04] MEDS: OXYGEN THERAPY IH SCH (08:00)
[2020-12-04 08:03] LABS: APPEARANCE,URINE SL CLOUDY (CLEAR); GLUCOSE, URINE (UA) 100 mg/dL (NEGATIVE); KETONES,URINE 15 mg/dL (NEGATIVE); LEUKOCYTE ESTERASE ,URINE SMALL (NEGATIVE); NITRATE,URINE NEGATIVE (NEGATIVE); OCCULT BLOOD,URINE NEGATIVE (NEGATIVE); PH,URINE 5.5 (5.0-8.0); PROTEIN,URINE NEGATIVE (NEGATIVE); UROBILINOGEN,URINE 0.2 mg/dL (<=1.0)
[2020-12-04 08:10] LABS: BACTERIA,URINE None Seen /HPF (None Seen); BILIRUBIN,URINE PRELIM. POSITIVE (NEGATIVE); RBC,URINE None Seen /HPF (0-2)
[2020-12-04 08:11] LABS: AMORPHOUS SEDIMENT,UR Few /LPF (None Seen); SQUAMOUS EPITHELIAL CELL,UR Few /LPF (None Seen)
[2020-12-04] MEDS: DOCUSATE SODIUM 100 MG CAPSULE PO SCH ×2 (08:17→21:00)
[2020-12-04] MEDS: LOSARTAN POTASSIUM 50 MG TABLET PO SCH (08:18)
[2020-12-04] MEDS: APIXABAN 2.5 MG TABLET PO SCH ×2 (08:18→21:00)
[2020-12-04] MEDS: LinaGLIPtin 5 MG TABLET PO SCH (08:19)
[2020-12-04] MEDS: HYDROCHLOROTHIAZIDE 25 MG TABLET PO SCH (08:19)
[2020-12-04] MEDS: OMEPRAZOLE 20 MG CAPSULE PO SCH (08:19)
[2020-12-04] MEDS: SIMVASTATIN 20 MG TABLET PO SCH (08:19)
[2020-12-04] MEDS ORDERED: SODIUM CHLORIDE 0.9% 1,000 ML IV SCH ×2 (08:30→11:15)
[2020-12-04] MEDS ORDERED: 1: MAGNESIUM SULFATE 2 GM, MVI, ADULT NO.1 WITH VIT K 10 ML, THIAMINE 100 MG, FOLIC ACID IV SCH ×5 (08:30)
[2020-12-04 11:00] VITALS: BP 97/45
[2020-12-04] MEDS ORDERED: ACETAMINOPHEN/CODEINE 300-30 MG TABLET PO PRN (12:45)
[2020-12-04 14:43] LABS: GLUCOMETER DEV NAME(LOC) 6N.1; GLUCOSE,POINT OF CARE 386 MG/DL (70-110)
[2020-12-04 15:59] VITALS: BP 98/43
[2020-12-04 17:55] LABS: BASOPHILS % (AUTO) 0.5 % (0.0-2.0); EOSINOPHILS % (AUTO) 0.9 % (1.0-6.0); HEMATOCRIT 34.9 % (36-46); HEMOGLOBIN 11.1 g/dL (12.0-16.0); LYMPHOCYTES # (AUTO) 2.5 K/uL (1.0-4.8); LYMPHOCYTES % (AUTO) 20.2 % (22.0-44.0); MEAN CORPUSCULAR HEMOGLOBIN 25.1 pg (26.0-34.0); MEAN CORPUSCULAR HGB CONC 31.9 G/dL (31.0-37.0); MEAN CORPUSCULAR VOLUME 79 fL (80-100); MONOCYTES # (AUTO) 0.8 K/uL (0.1-1.0); MONOCYTES % (AUTO) 6.2 % (2.0-9.0); NEUTROPHILS % (AUTO) 72.2 % (40.0-70.0); PLATELET COUNT (AUTO) 288 K/uL (150-450); RED BLOOD CELL COUNT(AUTO) 4.42 MIL/uL (4.00-5.20); RED CELL DISTRIBUTION WIDTH 17.6 % (11.5-14.5)
[2020-12-04] MEDS ORDERED: APIX2.5T PO (18:06)
[2020-12-04] MEDS ORDERED: ASPI-1450 PO (18:06)
[2020-12-04] MEDS ORDERED: CYCL10 PO (18:07)
[2020-12-04] MEDS ORDERED: GABA-1181 PO (18:07)
[2020-12-04] MEDS ORDERED: GLIP10 PO (18:08)
[2020-12-04] MEDS ORDERED: INSLAN SQ (18:08)
[2020-12-04] MEDS ORDERED: SIMV-260 PO (18:09)
[2020-12-04] MEDS ORDERED: PRAM0.258 PO (18:09)
[2020-12-04] MEDS ORDERED: ACET-2247 PO (18:10)
[2020-12-04] MEDS ORDERED: ACET-2080 PO (18:10)
[2020-12-04] MEDS ORDERED: BISA10SU11 PR (18:11)
[2020-12-04] MEDS ORDERED: INSU100V SQ (18:12)
[2020-12-04] MEDS ORDERED: MOM30 PO (18:13)
[2020-12-04 18:14] LABS: CALCIUM, TOTAL 7.6 mg/dL (8.8-10.5); CREATININE 1.27 mg/dL (0.60-1.30)
[2020-12-04] MEDS ORDERED: METF500S7 PO (18:14)
[2020-12-04] MEDS: ACETAMINOPHEN 325 MG TABLET PO PRN (19:24)
[2020-12-04 19:40] LABS: GLUCOMETER DEV NAME(LOC) 6N.1; GLUCOSE,POINT OF CARE 274 MG/DL (70-110)
[2020-12-04 20:00] VITALS: BP 120/61
[2020-12-04] MEDS ORDERED: PRAMIPEXOLE DI-HCL 0.25 MG TABLET PO SCH (21:00)
[2020-12-04] MEDS ORDERED: INSULIN GLARGINE,HUM.REC.ANLOG 100 UNITS/ML SQ SCH (21:00)
[2020-12-04] MEDS ORDERED: GABAPENTIN 300 MG CAPSULE PO SCH (21:00)
[2020-12-04 21:31] LABS: GLUCOMETER DEV NAME(LOC) 6S.1; GLUCOSE,POINT OF CARE 222 MG/DL (70-110)
[2020-12-05] MEDS ORDERED: ASPIRIN 81 MG CHEWABLE TABLET PO SCH (09:00)
[2020-12-05] MEDS ORDERED: CYCLOBENZAPRINE HCL 10 MG TABLET PO SCH (09:00)
[2020-12-07] MEDS ORDERED: ALENDRONATE SODIUM 70 MG TABLET PO SCH (06:30)
== END 2020-12-04 22:20 | DRG 482 ==
LOC: EMS 10:56 → 6N 20:05 → 6S 12-02 14:51
PROVIDERS: ADMIT Hospitalist; ATTEND Hospitalist
PROC: 0QSC34Z Reposition Left Lower Femur with Internal Fixation Device, Percutaneous Approach (ICD-10-PCS; principal; 2020-12-01 07:30)
DX: M80.852A Other osteoporosis with current pathological fracture, left femur, initial encounter for fracture (principal); E11.9 Type 2 diabetes mellitus without complications; I10 Essential (primary) hypertension; Z96.641 Presence of right artificial hip joint; K21.9 Gastro-esophageal reflux disease without esophagitis; E78.00 Pure hypercholesterolemia, unspecified; Z83.3 Family history of diabetes mellitus; Z96.611 Presence of right artificial shoulder joint; E78.5 Hyperlipidemia, unspecified; Z82.49 Family history of ischemic heart disease and other diseases of the circulatory system; Z20.822 Contact with and (suspected) exposure to COVID-19
CPT/HCPCS: 71045; 73503; 73552; 76001; 80048; 80053; 81001; 82962; 83036; 85025; 85379; 85610; 85730; 86850; 86870; 86880; 86900; 86901; 86905; 86906; 86971; 86999; 87040; 87081; 90686; 93306; 93970; 97110; 97116; 97162; 97166; 97530; 97535; 99285; C9290; J0330; J0690; J1644; J1815; J2270; J2405; J3010; J3370; J3411; J3475; J3490; J7030; J7120; Q9967; 36415-L1; 36415-TC; C1716; G0008; Z7610

== ENCOUNTER 2020-12-13 14:11 | Inpatient (IN) | payer MEDICARE, OTHER ==
[~2020-12-13] VITALS: Ht 157.5 cm; Wt 66.5 kg
[~2020-12-13 14:11] MED LIST changes: +ACET-2080 PO; +ACET-2247 PO; -ALEN70TA65 PO; +APIX2.5T PO; +ASPI-1450 PO; +BISA10SU11 PR; +CYCL10 PO; +GABA-1181 PO; -HYDR25TA2 PO; +INSLAN SQ; +INSU100V SQ; -LINA5TAB PO; -LOSA50TA37 PO; -METF-960 PO; +METF500S7 PO; +MOM30 PO; -OMEP20 PO; +PRAM0.258 PO
[2020-12-13] MEDS ORDERED: ACETAMINOPHEN 650 MG RECTAL SUPPOSITORY PR ONE (15:00)
[2020-12-13] MEDS ORDERED: VANCOMYCIN HCL 1 GM/D5% WATER 200 ML IV ONE (15:00)
[2020-12-13] MEDS ORDERED: SODIUM CHLORIDE 0.9% 2,200 ML IV ONE (15:00)
[2020-12-13] MEDS ORDERED: PIPERACILLIN/TAZO 3.375 GM/D5W 50 ML IV ONE (15:00)
[2020-12-13 15:17] LABS: HEMATOCRIT 40.2 % (36-46); HEMOGLOBIN 12.7 g/dL (12.0-16.0); MEAN CORPUSCULAR HEMOGLOBIN 25.8 pg (26.0-34.0); MEAN CORPUSCULAR HGB CONC 31.7 G/dL (31.0-37.0); MEAN CORPUSCULAR VOLUME 81 fL (80-100); PLATELET COUNT (AUTO) 346 K/uL (150-450); RED BLOOD CELL COUNT(AUTO) 4.94 MIL/uL (4.00-5.20); RED CELL DISTRIBUTION WIDTH 17.6 % (11.5-14.5)
[2020-12-13 15:47] LABS: B-TYPE NATRIURETIC PEPTIDE 569 pg/mL (0-100)
[2020-12-13 15:55] LABS: CARBON DIOXIDE 21 mmol/L (22-29); CHLORIDE 99 mmol/L (98-107); POTASSIUM 4.7 mmol/L (3.5-5.1); SODIUM SERUM 138 mmol/L (136-145)
[2020-12-13 15:56] LABS: CREATININE 1.24 mg/dL (0.60-1.30); GLOMERULAR FILTR. RATE CALC 42 mL/min (>60); GLUCOSE,RANDOM 158 mg/dL (70-110); UREA NITROGEN, BLOOD 35 mg/dL (7-18)
[2020-12-13 16:04] LABS: ALANINE AMINOTRANSFERASE 33 U/L (12-78); ALBUMIN 2.8 g/dL (3.4-5.0); ALKALINE PHOSPHATASE 261 U/L (46-116); ASPARTATE AMINOTRANSFERASE 46 U/L (15-37); BILIRUBIN,TOTAL 0.5 mg/dL (0.1-1.0); CREATINE KINASE, TOTAL ONLY 30 U/L (26-192); LIPASE 31 U/L (73-393); TOTAL PROTEIN, SERUM 7.4 g/dL (6.4-8.2)
[2020-12-13 16:05] LABS: COVID AG,FIA SOURCE NASOPHARYNGEAL
[2020-12-13 16:09] LABS: LACTIC ACID 9.3 mmol/L (0.4-2.0)
[2020-12-13 16:10] LABS: BAND NEUTROPHILS % (MANUAL) 17 % (0-5); LYMPHOCYTES % (MANUAL) 3 % (22-44); MONOCYTES % (MANUAL) 1 % (2-9); SEGMENTED NEUTROPHILS % 79 % (40-70)
[2020-12-13 16:11] LABS: ABG PH 7.345 (7.35-7.450); SITE, BLOOD GAS LFT RADIAL; SOURCE, BLOOD GAS ARTERIAL; TEMPERATURE, FAHRENHEIT, BG 102.5 FAHREN (96.0-98.6)
[2020-12-13 16:12] LABS: APPEARANCE,URINE CLOUDY (CLEAR); BILIRUBIN,URINE NEGATIVE (NEGATIVE); GLUCOSE, URINE (UA) 500 mg/dL (NEGATIVE); KETONES,URINE 15 mg/dL (NEGATIVE); LEUKOCYTE ESTERASE ,URINE SMALL (NEGATIVE); NITRATE,URINE POSITIVE (NEGATIVE); OCCULT BLOOD,URINE NEGATIVE (NEGATIVE); PROTEIN,URINE SEE CONFIRM (NEGATIVE); UROBILINOGEN,URINE 0.2 mg/dL (<=1.0)
[2020-12-13 16:12] LABS: ABG A-A DIFF O2 131.1 mmHg (10-20.0); ABG BASE EXCESS -5.9 mmol/L (-2.0-3.0); ABG CARBOXYHEMOGLOBIN 0.6 % (0.0-1.5); ABG HCO3 20.3 mmol/L (22.0-26.0); ABG OXYGEN CONTENT 16.5 mL/dL (15.0-23.0); ABG OXYGEN SATURATION 97.2 % (95.0-98.0); ABG OXYHEMOGLOBIN 96.6 % (94.0-100.0); ABG TOTAL HEMOGLOBIN 12.1 G/dL (12.0-18.0); PO2, ARTERIAL BG 109.3 mmHg (71.0-79.0)
[2020-12-13 16:13] LABS: ABG PCO2 37 mmHg (35-45); O2 DEVICE,BLOOD GAS CANNULA (ROOM AIR)
[2020-12-13 16:25] LABS: SULFOSALICYLIC ACID,URINE 2+ (Negative)
[2020-12-13 16:26] LABS: BACTERIA,URINE Many /HPF (None Seen); RBC,URINE None Seen /HPF (0-2)
[2020-12-13] MEDS ORDERED: DEXAMETHASONE SOD PHOS 4 MG/ML VIAL IVP ONE (17:00)
[2020-12-13] MEDS ORDERED: SODIUM CHLORIDE 0.9% 1,000 ML IV ONE (17:15)
[2020-12-13] MEDS ORDERED: NOREPINEPHRINE 4 MG/D5%-WATER 250 ML IV PRN (17:15)
[2020-12-13] MEDS ORDERED: ACETAMINOPHEN 325 MG TABLET PO PRN (17:30)
[2020-12-13] MEDS ORDERED: ONDANSETRON HCL 4 MG/2 ML VIAL IVP PRN ×2 (17:30→20:00)
[2020-12-13] MEDS ORDERED: 0.9% SODIUM CHLORIDE 10 ML SYRINGE IVP PRN (17:30)
[2020-12-13 17:37] LABS: D-DIMER 4.76 mg/L FEU (0.00-0.50)
[2020-12-13 17:41] LABS: C-REACTIVE PROTEIN QUANT 21.58 mg/dL (0.00-0.30)
[2020-12-13 17:48] LABS: ANION GAP 18 mmol/L (8-16)
[2020-12-13 18:03] LABS: INR 1.1 (0.9-1.1)
[2020-12-13 18:04] LABS: PROTHROMBIN TIME 11.9 SEC (9.4-11.6)
[2020-12-13 18:06] LABS: ERYTHROCYTE SEDIMENTATION RATE 28 MM/HR (0-20)
[2020-12-13] MEDS ORDERED: MAGNESIUM HYDROXIDE SUSPENSION 30 ML UDCUP PO PRN (20:00)
[2020-12-13] MEDS ORDERED: MORPHINE SULFATE 2 MG/ML SYRINGE IVP PRN (20:00)
[2020-12-13] MEDS ORDERED: *CLINICAL-LEVOFLOXACIN IVPB DOSING CLINICAL ONE (20:00)
[2020-12-13] MEDS ORDERED: BISACODYL 10 MG RECTAL RECTAL SUPPOSITORY PR PRN (20:00)
[2020-12-13] MEDS ORDERED: DEXTROSE 50%-WATER 25 GM/50 ML SYRINGE IVP PRN (20:15)
[2020-12-13] MEDS ORDERED: INSULIN LISPRO 100 UNITS/ML SQ PRN (20:15)
[2020-12-13 20:58] LABS: C-REACTIVE PROTEIN QUANT 22.1 mg/dL (0.00-0.30)
[2020-12-13] MEDS: DOCUSATE SODIUM 100 MG CAPSULE PO SCH (21:00)
[2020-12-13] MEDS ORDERED: LEVOFLOXACIN 750 MG/D5% WATER 150 ML IV ONE (21:15)
[2020-12-13] MEDS ORDERED: PENTETATE DTPA TC99M/MCL ISOTOPE 1 EA INJ INJ ONE (22:10)
[2020-12-13] MEDS ORDERED: MAA ALBUMIN AGGREGATED TC99M/UD<10MCL ISOTOPE 1 EA INJ INJ ONE (22:35)
[2020-12-13 23:58] LABS: ABG A-A DIFF O2 87.3 mmHg (10-20.0); ABG BASE EXCESS -9.6 mmol/L (-2.0-3.0); ABG CARBOXYHEMOGLOBIN 0.2 % (0.0-1.5); ABG HCO3 17.4 mmol/L (22.0-26.0); ABG METHEMOGLOBIN 0.3 % (0.0-1.5); ABG OXYGEN CONTENT 15.2 mL/dL (15.0-23.0); ABG OXYGEN SATURATION 98.3 % (95.0-98.0); ABG OXYHEMOGLOBIN 97.8 % (94.0-100.0); ABG PCO2 35 mmHg (35-45); ABG PH 7.302 (7.35-7.450); ABG TOTAL HEMOGLOBIN 10.9 G/dL (12.0-18.0); PO2, ARTERIAL BG 129.5 mmHg (71.0-79.0); SITE, BLOOD GAS RT BRACHIAL; SOURCE, BLOOD GAS ARTERIAL; TEMPERATURE, FAHRENHEIT, BG 97.7 FAHREN (96.0-98.6)
[2020-12-13 23:59] LABS: O2 DEVICE,BLOOD GAS CANNULA (ROOM AIR)
[2020-12-14] VITALS: BP 142/60
[2020-12-14] MEDS: HYDROCODONE/ACETAMINOPHEN 5-325 MG TABLET PO PRN ×2 (01:23→20:37)
[2020-12-14] MEDS: ACETAMINOPHEN 325 MG TABLET PO PRN ×3 (01:24→15:04)
[2020-12-14] MEDS: HEPARIN SODIUM,PORCINE 5,000 UNITS/ML VIAL SQ SCH ×4 (01:24→22:37)
[2020-12-14 04:00] VITALS: BP 130/61
[2020-12-14 05:14] LABS: HEMATOCRIT 34.3 % (36-46); HEMOGLOBIN 10.7 g/dL (12.0-16.0); MEAN CORPUSCULAR HEMOGLOBIN 25.4 pg (26.0-34.0); MEAN CORPUSCULAR HGB CONC 31.2 G/dL (31.0-37.0); MEAN CORPUSCULAR VOLUME 82 fL (80-100); PLATELET COUNT (AUTO) 320 K/uL (150-450); RED CELL DISTRIBUTION WIDTH 17.6 % (11.5-14.5)
[2020-12-14 05:22] LABS: CALCIUM, TOTAL 7.7 mg/dL (8.8-10.5); CREATININE 0.94 mg/dL (0.60-1.30); POTASSIUM 4.9 mmol/L (3.5-5.1)
[2020-12-14 06:39] LABS: LACTIC ACID 3.8 mmol/L (0.4-2.0)
[2020-12-14 07:06] LABS: BAND NEUTROPHILS % (MANUAL) 14 % (0-5); LYMPHOCYTES % (MANUAL) 5 % (22-44); MONOCYTES % (MANUAL) 3 % (2-9); SEGMENTED NEUTROPHILS % 78 % (40-70)
[2020-12-14 08:00] VITALS: BP 119/64
[2020-12-14] MEDS ORDERED: DEXTROSE 50%-WATER 25 GM/50 ML SYRINGE IVP PRN (08:15)
[2020-12-14] MEDS: VANCOMYCIN HCL 500 MG in DEXTROSE 5%-WATER 100 ML IV SCH ×2 (08:30→20:34)
[2020-12-14] MEDS: INSULIN LISPRO 100 UNITS/ML SQ PRN ×3 (08:35→22:35)
[2020-12-14] MEDS: DOCUSATE SODIUM 100 MG CAPSULE PO SCH ×2 (08:36→20:37)
[2020-12-14] MEDS: PANTOPRAZOLE SODIUM 40 MG DR TABLET PO SCH (08:36)
[2020-12-14] MEDS: NOREPINEPHRINE 4 MG/D5%-WATER 250 ML IV PRN (08:37)
[2020-12-14] MEDS: PIPERACILLIN SODIUM/TAZOBACTAM 2.25 GM in DEXTROSE 5%-WATER 50 ML IV SCH ×3 (10:43→20:38)
[2020-12-14 12:00] VITALS: BP 94/47
[2020-12-14 16:00] VITALS: BP 90/61
[2020-12-14] MEDS ORDERED: SODIUM CHLORIDE 0.9% 250 ML IV ONE (16:32)
[2020-12-14 18:38] LABS: GLUCOSE,POINT OF CARE 160 MG/DL (70-110)
[2020-12-14 18:38] LABS: GLUCOSE,POINT OF CARE 146 MG/DL (70-110)
[2020-12-14 20:00] VITALS: BP 115/75
[2020-12-14] MEDS: ZOLPIDEM TARTRATE 5 MG TABLET PO PRN (20:37)
[2020-12-15] VITALS: BP 115/66
[2020-12-15 04:00] VITALS: BP 102/55
[2020-12-15] MEDS: PIPERACILLIN SODIUM/TAZOBACTAM 2.25 GM in DEXTROSE 5%-WATER 50 ML IV SCH (04:48)
[2020-12-15] MEDS: NOREPINEPHRINE 4 MG/D5%-WATER 250 ML IV PRN (04:49)
[2020-12-15 05:54] LABS: EOSINOPHILS % (AUTO) 2.7 % (1.0-6.0); HEMATOCRIT 29.3 % (36-46); HEMOGLOBIN 9.6 g/dL (12.0-16.0); LYMPHOCYTES # (AUTO) 1.6 K/uL (1.0-4.8); LYMPHOCYTES % (AUTO) 7.7 % (22.0-44.0); MEAN CORPUSCULAR HEMOGLOBIN 25.8 pg (26.0-34.0); MEAN CORPUSCULAR HGB CONC 32.7 G/dL (31.0-37.0); MEAN CORPUSCULAR VOLUME 79 fL (80-100); MONOCYTES # (AUTO) 0.3 K/uL (0.1-1.0); MONOCYTES % (AUTO) 1.3 % (2.0-9.0); NEUTROPHILS # (AUTO) 18.1 K/uL (1.8-7.7); PLATELET COUNT (AUTO) 207 K/uL (150-450); RED BLOOD CELL COUNT(AUTO) 3.71 MIL/uL (4.00-5.20); RED CELL DISTRIBUTION WIDTH 17.6 % (11.5-14.5)
[2020-12-15 05:55] LABS: NEUTROPHILS % (AUTO) 88.3 % (40.0-70.0)
[2020-12-15 06:10] LABS: ANION GAP 6 mmol/L (8-16); CALCIUM, TOTAL 7.5 mg/dL (8.8-10.5); CARBON DIOXIDE 26 mmol/L (22-29); CHLORIDE 101 mmol/L (98-107); CREATININE 0.75 mg/dL (0.60-1.30); GLUCOSE,RANDOM 132 mg/dL (70-110); POTASSIUM 3.9 mmol/L (3.5-5.1); SODIUM SERUM 133 mmol/L (136-145); UREA NITROGEN, BLOOD 22 mg/dL (7-18)
[2020-12-15 06:23] LABS: GLOMERULAR FILTR. RATE CALC > 60 mL/min (>60)
[2020-12-15 06:35] LABS: GLUCOSE,POINT OF CARE 166 MG/DL (70-110)
[2020-12-15] MEDS: INSULIN LISPRO 100 UNITS/ML SQ PRN ×3 (06:39→22:00)
[2020-12-15 06:45] LABS: GLUCOSE,POINT OF CARE 143 MG/DL (70-110)
[2020-12-15 08:00] VITALS: BP 110/62
[2020-12-15] MEDS: VANCOMYCIN HCL 500 MG in DEXTROSE 5%-WATER 100 ML IV SCH (08:00)
[2020-12-15] MEDS: PANTOPRAZOLE SODIUM 40 MG DR TABLET PO SCH (08:01)
[2020-12-15] MEDS: HEPARIN SODIUM,PORCINE 5,000 UNITS/ML VIAL SQ SCH ×3 (08:01→20:45)
[2020-12-15] MEDS: DOCUSATE SODIUM 100 MG CAPSULE PO SCH ×2 (08:01→20:44)
[2020-12-15] MEDS ORDERED: SODIUM CHLORIDE 0.9% 250 ML IV ONE (08:33)
[2020-12-15] MEDS: PIPERACILLIN/TAZO 3.375 GM/D5W 50 ML IV SCH ×3 (09:51→22:44)
[2020-12-15 12:00] VITALS: BP 109/49
[2020-12-15] MEDS ORDERED: SODIUM CHLORIDE 0.9% 1,000 ML IV ONE (13:15)
[2020-12-15 13:58] LABS: GLUCOSE,POINT OF CARE 112 MG/DL (70-110)
[2020-12-15 16:00] VITALS: BP 103/49
[2020-12-15] MEDS: ACETAMINOPHEN 325 MG TABLET PO PRN (16:00)
[2020-12-15] MEDS ORDERED: LEVOFLOXACIN 750 MG/D5% WATER 150 ML IV SCH (18:00)
[2020-12-15 18:54] LABS: GLUCOSE,POINT OF CARE 162 MG/DL (70-110)
[2020-12-15 21:44] VITALS: BP 140/64
[2020-12-15 21:49] LABS: GLUCOSE,POINT OF CARE 152 MG/DL (70-110)
[2020-12-15] MEDS: HYDROCODONE/ACETAMINOPHEN 5-325 MG TABLET PO PRN (21:58)
[2020-12-15] MEDS: ZOLPIDEM TARTRATE 5 MG TABLET PO PRN (21:58)
[2020-12-16] VITALS: BP 109/52
[2020-12-16] MEDS ORDERED: SODIUM CHLORIDE 0.9% 250 ML IV ONE (01:32)
[2020-12-16 04:00] VITALS: BP 120/90
[2020-12-16] MEDS: PIPERACILLIN/TAZO 3.375 GM/D5W 50 ML IV SCH ×2 (04:28→10:00)
[2020-12-16 06:04] LABS: BASOPHILS % (AUTO) 0.2 % (0.0-2.0); EOSINOPHILS % (AUTO) 0.4 % (1.0-6.0); HEMATOCRIT 30.1 % (36-46); HEMOGLOBIN 9.7 g/dL (12.0-16.0); LYMPHOCYTES # (AUTO) 1.5 K/uL (1.0-4.8); LYMPHOCYTES % (AUTO) 10.4 % (22.0-44.0); MEAN CORPUSCULAR HEMOGLOBIN 25.4 pg (26.0-34.0); MEAN CORPUSCULAR HGB CONC 32.3 G/dL (31.0-37.0); MEAN CORPUSCULAR VOLUME 79 fL (80-100); MONOCYTES # (AUTO) 0.3 K/uL (0.1-1.0); MONOCYTES % (AUTO) 2.3 % (2.0-9.0); NEUTROPHILS # (AUTO) 12.2 K/uL (1.8-7.7); PLATELET COUNT (AUTO) 158 K/uL (150-450); RED BLOOD CELL COUNT(AUTO) 3.82 MIL/uL (4.00-5.20); RED CELL DISTRIBUTION WIDTH 18.1 % (11.5-14.5)
[2020-12-16 06:05] LABS: ANION GAP 10 mmol/L (8-16); CALCIUM, TOTAL 7.6 mg/dL (8.8-10.5); CARBON DIOXIDE 25 mmol/L (22-29); CHLORIDE 103 mmol/L (98-107); GLUCOSE,RANDOM 131 mg/dL (70-110); POTASSIUM 3.3 mmol/L (3.5-5.1); SODIUM SERUM 138 mmol/L (136-145); UREA NITROGEN, BLOOD 13 mg/dL (7-18)
[2020-12-16 06:07] LABS: GLOMERULAR FILTR. RATE CALC > 60 mL/min (>60)
[2020-12-16 06:13] LABS: NEUTROPHILS % (AUTO) 86.7 % (40.0-70.0)
[2020-12-16 08:00] VITALS: BP 119/52
[2020-12-16] MEDS: DOCUSATE SODIUM 100 MG CAPSULE PO SCH ×2 (08:40→20:42)
[2020-12-16] MEDS: HEPARIN SODIUM,PORCINE 5,000 UNITS/ML VIAL SQ SCH ×2 (08:40→15:36)
[2020-12-16] MEDS: PANTOPRAZOLE SODIUM 40 MG DR TABLET PO SCH (08:40)
[2020-12-16] MEDS ORDERED: SODIUM CHLORIDE 0.9% 1,000 ML IV ONE (11:00)
[2020-12-16 12:00] VITALS: BP 119/71
[2020-12-16] MEDS: INSULIN LISPRO 100 UNITS/ML SQ PRN (12:30)
[2020-12-16 12:39] LABS: GLUCOSE,POINT OF CARE 182 MG/DL (70-110)
[2020-12-16] MEDS: CefTRIAXone 1 GM/DEXTROSE 50 ML IV SCH (15:35)
[2020-12-16 16:00] VITALS: BP 107/56
[2020-12-16] MEDS ORDERED: LEVOFLOXACIN 750 MG/D5% WATER 150 ML IV SCH (18:00)
[2020-12-16 18:26] LABS: GLUCOSE,POINT OF CARE 120 MG/DL (70-110)
[2020-12-16 19:32] LABS: GLUCOSE,POINT OF CARE 108 MG/DL (70-110)
[2020-12-16 20:00] VITALS: BP 131/69
[2020-12-17] VITALS: BP 132/65
[2020-12-17] MEDS: HEPARIN SODIUM,PORCINE 5,000 UNITS/ML VIAL SQ SCH ×2 (00:34→10:04)
[2020-12-17 04:00] VITALS: BP 124/59
[2020-12-17 05:32] LABS: GLUCOSE,POINT OF CARE 132 MG/DL (70-110)
[2020-12-17 06:22] LABS: GLUCOSE,POINT OF CARE 123 MG/DL (70-110)
[2020-12-17 06:37] VITALS: BP 136/58
[2020-12-17 08:25] VITALS: BP 115/59
[2020-12-17 08:49] LABS: ANION GAP 9 mmol/L (8-16); CALCIUM, TOTAL 7.6 mg/dL (8.8-10.5); CARBON DIOXIDE 26 mmol/L (22-29); CHLORIDE 102 mmol/L (98-107); CREATININE 0.54 mg/dL (0.60-1.30); GLUCOSE,RANDOM 147 mg/dL (70-110); POTASSIUM 3.3 mmol/L (3.5-5.1); SODIUM SERUM 137 mmol/L (136-145); UREA NITROGEN, BLOOD 9 mg/dL (7-18)
[2020-12-17 08:50] LABS: GLOMERULAR FILTR. RATE CALC > 60 mL/min (>60)
[2020-12-17] MEDS: PANTOPRAZOLE SODIUM 40 MG DR TABLET PO SCH (10:04)
[2020-12-17] MEDS: DOCUSATE SODIUM 100 MG CAPSULE PO SCH (10:04)
[2020-12-17 11:18] VITALS: BP 124/62
[2020-12-17] MEDS ORDERED: CEFX2I IV (11:41)
[2020-12-17] MEDS ORDERED: POTASSIUM CHLORIDE 10% 40 MEQ/30 ML LIQUID UDCUP PO ONE (11:45)
[2020-12-17] MEDS: INSULIN LISPRO 100 UNITS/ML SQ PRN (12:39)
[2020-12-17 12:55] LABS: GLUCOMETER DEV NAME(LOC) 5S.2B; GLUCOSE,POINT OF CARE 189 MG/DL (70-110)
[2020-12-17] MEDS ORDERED: SODIUM CHLORIDE 0.9% 250 ML IV ONE (14:38)
[2020-12-17] MEDS: CefTRIAXone 1 GM/DEXTROSE 50 ML IV SCH (15:15)
[2020-12-17 15:32] VITALS: BP 119/53
[2020-12-18 19:06] LABS: S PNEUMO SOURCE Urine; STREP PNEUMONIAE AG URINE Negative (Negative)
[2020-12-18 21:06] LABS: LEGIONELLA PNEUMO AG URINE Negative (Negative)
== END 2020-12-17 15:50 | DRG 871 ==
LOC: EMS 14:15 → ICU 12-14 → 5N 12-17 06:10
PROVIDERS: ADMIT Internal Medicine; ATTEND Internal Medicine
DX: A41.51 Sepsis due to Escherichia coli [E. coli] (principal); R65.21 Severe sepsis with septic shock; I21.A1 Myocardial infarction type 2; N39.0 Urinary tract infection, site not specified; E11.9 Type 2 diabetes mellitus without complications; E78.5 Hyperlipidemia, unspecified; I10 Essential (primary) hypertension; R09.02 Hypoxemia; M81.0 Age-related osteoporosis without current pathological fracture; Z96.611 Presence of right artificial shoulder joint; Z96.641 Presence of right artificial hip joint; B96.20 Unspecified Escherichia coli [E. coli] as the cause of diseases classified elsewhere; Z20.822 Contact with and (suspected) exposure to COVID-19; B96.89 Other specified bacterial agents as the cause of diseases classified elsewhere; N19 Unspecified kidney failure; Z79.4 Long term (current) use of insulin; Z79.899 Other long term (current) drug therapy
CPT/HCPCS: 36600; 51701; 70450; 71045; 78582; 80048; 80053; 81001; 81002; 82140; 82550; 82728; 82805; 82962; 83605; 83615; 83690; 83735; 83880; 84484; 85025; 85379; 85384; 85610; 85651; 86140; 87040; 87077; 87081; 87086; 87186; 87205; 87449; 87899; 93005; 93306; 93970; 99291; A9539; A9540; G0378; J0696; J1100; J1644; J1956; J2270; J2543; J3370; J3490; J7030; J7050; J7060; 36415-L1; 36415-TC; U0003